=== PATIENT | female | born 1965 | race Caucasian/White ===

== ENCOUNTER 2020-12-28 03:53 | Emergency (ER) | payer OTHER ==
[~2020-12-28 03:53] MED LIST: ACID CONTROL150 MG PO; ELMIRON100 MG PO; GLUCOPHAGE 500500 MG PO; HYDROCHLOROTHIA25 MG PO; LOPRESSOR 25 MG25 MG PO; NORCO 7.5-3251 EACH PO; VISTARIL50 MG PO
[2020-12-28] MEDS ORDERED: CEFUROXIME500 MG PO (04:45)
[2020-12-28 04:51] LABS: HEMOGLOBIN 13.8 gm/dl (12.3-15.3); RED BLOOD COUNT 4.44 M/UL (4.00-5.10); WHITE BLOOD COUNT 9.2 K/UL (4.5-11.0)
[2020-12-28 05:16] LABS: BUN/CREATININE RATIO 18 (0-10)
== END 2020-12-28 05:20 | disposition home or self-care (01) ==
LOC: ER1 03:53
PROVIDERS: Physician Assistant
DX: N30.01 Acute cystitis with hematuria (principal); N30.21 Other chronic cystitis with hematuria; E11.9 Type 2 diabetes mellitus without complications; I10 Essential (primary) hypertension; Z90.49 Acquired absence of other specified parts of digestive tract
CPT/HCPCS: 80053; 81001; 83690; 85025; 87077; 87086; 87186; 96374; 96375; 99284; J0696; J1885; J2405